=== PATIENT | female | born 2000 ===

== ENCOUNTER 2019-07-09 15:27 | Emergency (ER) | payer SELFPAY ==
[2019-07-09 15:40] VITALS: BP 112/72
[2019-07-09] MEDS ORDERED: Ibuprofen TAB* 400 MG PO ONE (15:53)
--- NOTE | 2019-07-09 15:58 | UC ---
Cardiac HPI - HPI Summary HPI Summary: patient was exercising 3 hours a go and felt a sharp mid chest pain after finishing. worse if she takes a deep breath, or if pressing on sternum, better if resting. has taken no meds or tried any treatment thus far, denies SOB/dizziness, fever or recent illness - History of Current Complaint Chief Complaint: UCChestPain Stated Complaint: CHEST PAIN Time Seen by Provider: 07/09/19 15:44 Hx Obtained From: Patient Hx Last Menstrual Period: Onset/Duration: Sudden Onset Timing: Constant Current Severity: Mild Pain Intensity: 3 Chest Pain Location: Mid Sternal Aggravating Factor(s): Deep Breaths, Other - pushing on area Alleviating Factor(s): Rest Associated Signs & Symptoms: Positive: Negative - Risk Factors Pulmonary Embolism Risk Factors: Negative Cardiac Risk Factors: Negative - Allergy/Home Medications Allergies/Adverse Reactions: Allergies Allergy/AdvReac Type Severity Reaction Status Date / Time bupropion Allergy Itching Verified 07/09/19 15:41 Home Medications: Home Medications Ibuprofen 200 mg PO Q6H PRN 02/07/14 [History Confirmed 07/09/19] Cholecalciferol (Vitamin D3) [Vitamin D3] 2,000 unit PO DAILY 07/09/19 [History Confirmed 07/09/19] Cyanocobalamin TAB* [Vitamin B12 TAB*] 2,000 i.u. PO DAILY 07/09/19 [History Confirmed 07/09/19] FLUoxetine* [PROzac*] 10 mg PO DAILY 07/09/19 [History Confirmed 07/09/19] PMH/Surg Hx/FS Hx/Imm Hx Previously Healthy: Yes Psychological History: Depression - Surgical History Surgical History: None - Family History Known Family History: Positive: None - Social History Occupation: Student Lives: With Family Alcohol Use: None Substance Use Type: None Smoking Status (MU): Never Smoked Tobacco Review of Systems All Other Systems Reviewed And Are Negative: Yes Constitutional: Positive: Negative Skin: Positive: Negative. Negative: Rash Respiratory: Positive: Negative. Negative: Shortness Of Breath, Cough Cardiovascular: Positive: Chest Pain. Negative: Palpitations Gastrointestinal: Positive: Negative Neurological/Mental Status: Positive: Negative Psychological: Positive: Negative Is Patient Immunocompromised?: No Physical Exam Triage Information Reviewed: Yes Appearance: Well-Appearing, No Pain Distress, Well-Nourished Vital Signs: Initial Vital Signs Temp 99.3 F 07/09/19 15:34 Pulse 74 07/09/19 15:34 Resp 16 07/09/19 15:34 BP 112/72 07/09/19 15:34 Pulse Ox 100 07/09/19 15:34 Vital Signs Reviewed: Yes Respiratory: Positive: Lungs clear, Normal breath sounds, No respiratory distress, Other: - able to precipitate chest pain when palpating mid sternal area or when patient takes deep breath, no swelling or crepitus Cardiovascular Exam: Normal Cardiovascular: Positive: RRR, No Murmur, Pulses Normal Neurological Exam: Normal Psychological Exam: Normal Skin Exam: Normal Re-Evaluation - Re-Evaluation First Eval Re-Evaluation Time: 16:25 Change: Improved - pain resolving - Differential Diagnoses - Chest Pain Differential Diagnosis/HQI/PQRI: Chest Wall, Lower Respiratory Infection, Pulmonary Embolism, Other: - influenza - Clinical Impression Provider Diagnosis: Acute chest wall pain Discharge ED - Sign-Out/Discharge Documenting (check all that apply): Patient Departure All imaging exams completed and their final reports reviewed: No Studies - Discharge Plan Condition: Good Disposition: HOME Patient Education Materials: Chest Wall Pain (ED) Referrals: Dia Conner MD [Primary Care Provider] - 2 Days (if no better) Additional Instructions: rest and use ibuprofen 400-600mg every 6-8hours as needed for pain - take with food report to ER if your symptoms worsen or new symptoms develop - Billing Disposition and Condition Condition: GOOD Disposition: Home
== END 2019-07-09 16:40 | disposition home or self-care (01) ==
LOC: UCEAST 15:27
DX: R07.89 Other chest pain (principal); F32.9 Major depressive disorder, single episode, unspecified; Z88.8 Allergy status to other drugs, medicaments and biological substances; Z79.899 Other long term (current) drug therapy
CPT/HCPCS: 99212; A9270-GY; G0463